=== PATIENT | female | born 1975 | race Caucasian/White ===

== ENCOUNTER → 2016-09-25 | Outpatient (CLI) | payer MEDICAID ==
[~2016-09-25] MED LIST: ALLEGRA180 MG PO; LORTAB 500 MG-71 TAB PO; NEURONTIN 300M300 MG PO; NYSTATIN100000 U/M PO; PROAIR HFA0.09 MG/AC IH; SINGULAIR10 MG PO; SYMBICORT1 AER IH; TRAMADOL 50MG T50 MG PO
[2016-09-25 18:11] LABS: AMPHETAMINES/METAMPHETAMINES NEGATIVE ng/mL (<1000)
== END ==
LOC: LAB 17:15
PROVIDERS: Nurse Practitioner Family
DX: E66.9 Obesity, unspecified (principal)

== ENCOUNTER → 2017-05-17 | Outpatient (CLI) | payer MEDICAID ==
[2017-05-19 09:43] LABS: Folate (Folic Acid) 2.8 ng/mL (>3.0)
== END ==
LOC: LAB 18:07
PROVIDERS: Nurse Practitioner Family
DX: G62.9 Polyneuropathy, unspecified (principal)

== ENCOUNTER → 2017-05-20 | Outpatient (CLI) | payer MEDICAID ==
--- NOTE | 2017-05-20 10:55 | RADIOLOGY REPORT PS360 ---
MRI-L-SPINE W/O COMPARISON: None HISTORY: Right-sided lower back pain TECHNIQUE: Standard sagittal and axial sequences were performed along with a myelogram sequence. FINDINGS: There is normal curvature and alignment. The marrow signal is normal in all lumbar vertebrae. There is a normal healthy high signal in each lumbar disks. There is no abnormal disc protrusion. There are mild to moderate hypertrophic facet changes bilaterally at levels L2-3 through L5-S1. The myelogram sequence is unremarkable. There is a small cortical cyst approximately midpole right kidney measuring 2.0 x 1.6 cm but not completely imaged on this study seen only on the 2 highest images of the T2 axial sequence. IMPRESSION: Essentially unremarkable MRI scan lumbar spine, benign-appearing cortical cyst incompletely imaged right kidney as described
== END ==
LOC: RAD 08:45
DX: M54.5 Low back pain (principal)

== ENCOUNTER → 2017-06-01 | Outpatient (CLI) | payer MEDICAID ==
--- NOTE | 2017-06-01 13:44 | RADIOLOGY REPORT PS360 ---
MRI-BRAIN W/O HISTORY: Severe headache NONINTRACTABLE EPISODIC HEADACHE ORDERING PHYSICIAN: SINA SANCHEZ PATIENT AGE: 41 years COMPARISON: None TECHNIQUE: Standard multiplanar multiecho sequences are performed without contrast. FINDINGS: No midline shift, mass effect, intracranial hemorrhage, hydrocephalus, or acute cortical infarction is evident. No abnormal restricted diffusion. The cerebellopontine angles, cerebellum, and brainstem have an unremarkable appearance the pituitary, optic chiasm, and corpus callosum are unremarkable. No cerebellar tonsillar ectopia. Unremarkable white matter signal intensity. Unremarkable hippocampal structures. IMPRESSION: Negative MRI of the brain without contrast. No acute intracranial findings
== END ==
LOC: RAD 10:05
DX: R51 Headache (principal)

== ENCOUNTER → 2017-07-29 | Outpatient (CLI) | payer MEDICAID | LOC: LAB 16:57 | DX: L02.91 Cutaneous abscess, unspecified (principal) ==